=== PATIENT | male | born 1995 | race Caucasian/White ===

== ENCOUNTER 2019-11-17 06:23 | Emergency (ER) | payer OTHER ==
[2019-11-17 06:36] VITALS: BP 141/90; PULSE 92; TEMP 98.2
--- NOTE | 2019-11-17 06:57 | ED ---
Extremity Problem HPI - General Chief complaint: Extremity Problem,Nontraumatic Stated complaint: [facility] leg pain Time Seen by Provider: 11/17/19 06:37 Source: patient, RN notes reviewed Mode of arrival: wheelchair Limitations: no limitations - History of Present Illness Initial comments: This is a 24-year-old male presents emergency Department with chief complaint of left knee pain. Patient states he was squatting down to level wall yesterday when he stood up and felt a pop in his knee. Patient has pain when he fully straighten out his leg. Patient states most discomfort is in the front of his knee. She's had no prior knee problems denies any paresthesias denies any symptoms swelling, redness or discoloration. Patient took Cipro from for heat pack on it yesterday. Patient states it did help somewhat size residual pain today. This is happened at work yesterday. Patient was sent in for evaluation. - Related Data Previous Rx's Medication Instructions Recorded Ibuprofen [Motrin] 600 mg PO Q8HR PRN #20 tab 11/17/19 Allergies Allergy/AdvReac Type Severity Reaction Status Date / Time No Known Allergies Allergy Verified 11/17/19 06:35 Review of Systems ROS Statement: Those systems with pertinent positive or pertinent negative responses have been documented in the HPI. ROS Other: All systems not noted in ROS Statement are negative. Past Medical History Past Medical History: No Reported History History of Any Multi-Drug Resistant Organisms: None Reported Past Surgical History: No Surgical Hx Reported Past Psychological History: No Psychological Hx Reported Smoking Status: Current every day smoker Past Alcohol Use History: Occasional Past Drug Use History: None Reported General Exam Limitations: no limitations General appearance: alert, in no apparent distress Head exam: Present: atraumatic, normocephalic, normal inspection Eye exam: Present: normal appearance, PERRL, EOMI. Absent: scleral icterus, conjunctival injection, periorbital swelling Respiratory exam: Present: normal lung sounds bilaterally. Absent: respiratory distress, wheezes, rales, rhonchi, stridor Cardiovascular Exam: Present: regular rate, normal rhythm, normal heart sounds. Absent: systolic murmur, diastolic murmur, rubs, gallop, clicks Extremities exam: Present: other (Left knee patient has slightly decreased range of motion cannot fully extend left knee without moderate discomfort there is no localized tenderness with palpation neurovascular intact equal pedal pulses no laxity noted no pain with valgus varus) Neurological exam: Present: reflexes normal. Absent: motor sensory deficit Skin exam: Present: warm, dry, intact, normal color. Absent: rash Course Vital Signs 11/17/19 06:32 Temperature 98.2 F Pulse Rate 92 Respiratory 18 Rate Blood Pressure 141/90 O2 Sat by Pulse 100 Oximetry Medical Decision Making - Medical Decision Making X-ray review shows evidence of suprapatellar joint effusion. I do believe that patient has a ligamentous strain versus meniscus injury. Patient will follow-up with orthopedics for MRI. Patient advised to rest, ice elevation and anti- inflammatories. Patient will limit use. Disposition Clinical Impression: Suprapatellar effusion of knee, Strain of left knee Disposition: HOME SELF-CARE Condition: Stable Instructions (If sedation given, give patient instructions): Swollen Knee Joint (ED), Knee Pain (ED) Additional Instructions: Please return to the Emergency Department if symptoms worsen or any other concerns. Prescriptions: Ibuprofen [Motrin] 600 mg PO Q8HR PRN #20 tab PRN Reason: Pain Is patient prescribed a controlled substance at d/c from ED?: No Referrals: None,Stated [Primary Care Provider] - 1-2 days Percy Small MD [STAFF PHYSICIAN] - 1-2 days Time of Disposition: 07:27
--- NOTE | 2019-11-17 07:18 | XR ---
EXAMINATION TYPE: XR knee complete LT DATE OF EXAM: 11/17/2019 COMPARISON: NONE HISTORY: 24-year-old male with pain TECHNIQUE: 3 views FINDINGS: Mild anterior soft tissue swelling. This seems to be a moderate underlying suprapatellar knee joint e ffusion. Extensor mechanism appears intact. No acute fracture, subluxation, or dislocation seen. IMPRESSION: Mild anterior soft tissue swelling. In addition, moderate underlying suprapatellar joint effusion. No acute osseous abnormality seen. If concern for internal derangement, MRI can be performed.
[2019-11-17 07:40] VITALS: RESP 20
== END 2019-11-17 07:36 | disposition home or self-care (01) ==
LOC: EC 06:23
DX: M25.462 Effusion, left knee (principal); S86.912A Strain of unspecified muscle(s) and tendon(s) at lower leg level, left leg, initial encounter; F17.200 Nicotine dependence, unspecified, uncomplicated; X50.9XXA Other and unspecified overexertion or strenuous movements or postures, initial encounter; Y93.89 Activity, other specified; Y92.69 Other specified industrial and construction area as the place of occurrence of the external cause; Y99.0 Civilian activity done for income or pay
CPT/HCPCS: 99283

== ENCOUNTER 2021-03-07 07:11 | Emergency (ER) | payer OTHER ==
[2021-03-07 07:15] VITALS: RESP 18; TEMP 97.5
--- NOTE | 2021-03-07 07:39 | ED ---
General Adult HPI - General Chief complaint: Skin/Abscess/Foreign Body Stated complaint: poss infection in arm Time Seen by Provider: 03/07/21 07:20 Source: patient, RN notes reviewed Mode of arrival: ambulatory Limitations: no limitations - History of Present Illness Initial comments: Patient is a pleasant 25-year-old male presenting to the emergency department with redness of his right arm. Onset of symptoms was yesterday while at work. Patient was hanging siding. No injury. No known bug bite. Patient does have mild discomfort at the skin. Patient does not feel discomfort internally. No fever. No history of similar symptoms. No other area affected. - Related Data Previous Rx's Medication Instructions Recorded Ibuprofen [Motrin] 600 mg PO Q8HR PRN #20 tab 11/17/19 Cephalexin [Keflex] 500 mg PO QID #40 cap 03/07/21 predniSONE [Deltasone] 20 mg PO BID #10 tab 03/07/21 Allergies Allergy/AdvReac Type Severity Reaction Status Date / Time No Known Allergies Allergy Verified 03/07/21 07:15 Review of Systems ROS Statement: Those systems with pertinent positive or pertinent negative responses have been documented in the HPI. ROS Other: All systems not noted in ROS Statement are negative. Constitutional: Denies: fever, chills Eyes: Denies: eye pain ENT: Denies: ear pain Respiratory: Denies: cough, dyspnea Cardiovascular: Denies: chest pain Endocrine: Denies: fatigue Gastrointestinal: Denies: abdominal pain Genitourinary: Denies: dysuria Musculoskeletal: Denies: back pain Skin: Reports: as per HPI, rash Neurological: Denies: weakness Past Medical History Past Medical History: No Reported History History of Any Multi-Drug Resistant Organisms: None Reported Past Surgical History: No Surgical Hx Reported Past Psychological History: No Psychological Hx Reported Smoking Status: Current every day smoker Past Alcohol Use History: Occasional Past Drug Use History: None Reported General Exam Limitations: no limitations General appearance: alert, in no apparent distress Head exam: Present: atraumatic Eye exam: Present: normal appearance Neck exam: Present: normal inspection Respiratory exam: Present: normal lung sounds bilaterally Cardiovascular Exam: Present: regular rate, normal rhythm Expanded Peripheral pulses: 2+: Radial (R) Extremities exam: Present: other (Right forearm mostly on the volar/ulnar side with slight erythema and minimal swelling. There is mild tenderness to palpation. Distally the extremity is neurovascular intact. No pain with range of motion. No joint affected. No distal paresthesias or distal swelling or loss of strength or sensat) Neurological exam: Present: alert. Absent: motor sensory deficit Skin exam: Present: erythema Course Vital Signs 03/07/21 07:12 Temperature 97.5 F L Pulse Rate 116 H Respiratory 18 Rate Blood Pressure 137/78 O2 Sat by Pulse 99 Oximetry Medical Decision Making - Medical Decision Making Ultrasound negative for DVT. Exam is equivocal for reactive process versus early infection. Patient will be treated for both and is updated regarding this. - Radiology Data Radiology results: report reviewed (Ultrasound negative for DVT) Disposition Clinical Impression: Erythema of upper extremity Disposition: HOME SELF-CARE Condition: Stable Instructions (If sedation given, give patient instructions): Cellulitis (ED), Allergies (ED) Additional Instructions: Please do follow-up with primary care physician in the next couple days for recheck. Return for fever, increased redness, increased swelling, increased pain, hand problems, worsening or changing symptoms or any other concerns. Prescription for steroids and antibiotics has been sent to your pharmacy. Prescriptions: predniSONE [Deltasone] 20 mg PO BID #10 tab Cephalexin [Keflex] 500 mg PO QID #40 cap Is patient prescribed a controlled substance at d/c from ED?: No Referrals: Otf Grey DO [STAFF PHYSICIAN] - 1-2 days Time of Disposition: 09:10
--- NOTE | 2021-03-07 08:47 | US ---
EXAMINATION TYPE: US venous doppler duplex UE RT DATE OF EXAM: 03/07/2021 COMPARISON: NONE CLINICAL HISTORY: 25-year-old male redness and swelling. SIDE PERFORMED: right TECHNIQUE: Grayscale, color doppler, spectral doppler imaging performed of the deep veins of the upp er extremity. FINDINGS: There is normal flow, compressibility and vascular waveforms. Right Arm: Negative for DVT IMPRESSION: No evidence for DVT within the right upper extremity.
[2021-03-07 09:28] VITALS: BP 129/76; PULSE 101
== END 2021-03-07 09:28 | disposition home or self-care (01) ==
LOC: EC 07:11
DX: L53.9 Erythematous condition, unspecified (principal); F17.200 Nicotine dependence, unspecified, uncomplicated
CPT/HCPCS: 99283